=== PATIENT | female | born 1990 | race Caucasian/White ===

== ENCOUNTER 2017-08-04 18:53 | Emergency (ER) | payer OTHER, MEDICAID, SELFPAY ==
[2017-08-04 19:16] VITALS: BP 121/68; PULSE 91; RESP 18; TEMP 37.3; O2SAT 99; BMI 28.3
== END 2017-08-04 20:09 | disposition left against medical advice (07) ==
DX: R33.0 Drug induced retention of urine (principal)
CPT/HCPCS: 99281; 99282

== ENCOUNTER 2022-01-25 17:08 | Outpatient (CLI) | payer OTHER, MEDICAID, SELFPAY ==
--- NOTE | 2022-01-25 18:01 | PM.OBTRLD ---
Visit Information Visit Information Date of evaluation: 01/25/22 On-call OB Provider: Doug Aguero Comments/Additional reasons for admission: 31 yo , NIECY 03/02/2022 presents now at 34+6 weeks EGA for NST for unknown reasons in referral from [facility] on [facility]. According to the RN at [facility] the patient had a normal BPP today for uncertain reasons and the NST was to complete the full BPP. She is apparently receiving care on [facility] and was directed by her [facility] RN to have an NST performed at [facility] but she presents here at [facility] instead. No records are available but according to the patient she's had no issues with this . Vital Signs Vital Signs: BP 120/76 P=98 R=18 97.8F [facility] Medical History (Updated 01/25/22 @ 18:18 by Doug Aguero MD) Acne Chicken pox Chlamydia Surgical History (Updated 08/09/21 @ 08:45 by Shoshana Sandra RN) No significant past surgical history Family History (Updated 01/13/22 @ 17:51 by Pamela Horton) Father Diabetes mellitus Hypertension Hyperlipidemia Stroke Mother Mental health problem Sister Mental health problem Grandfather Liver failure Grandmother No problems noted. Social History marital status: unmarried,single number of children: 2 household members: children lives independently: Yes housing: apartment pets and animals: Yes (2 small dogs) occupational status: unemployed current occupational exposures/hazards: No special wallace needs: No seatbelt use: always helmet use: Yes water heater temp set < 120 deg: No (Will check and have maintenance superintendent adjust if needed) working smoke detector in home: Yes fire extinguisher in home: Yes carbon monox detector in home: Yes firearms in home: No do you feel safe at home: Yes Smoking Status: Current every day smoker (Less than usual since ) Tobacco: How many years used: 15 quit status: not considering quitting second hand exposure: Yes alcohol intake: former substance use type: does not use during the past year weight has: other (fluctuates ) well-balanced diet: about half the time daily servings fruits/ve-4 caffeine: Yes (aware of 200mg limit) Type(s) of exercise: walking additional social history: Pt had very poor experience w/ MFM in 2nd when baby was diagnosed with spina bifida and she reports she was frequently encouraged by her healthcare team to abort the . She has considered terminating this as it was unplanned and is currently being pressured by her family to keep it but has not made a decision yet. Exam Const General: cooperative Nutritional Appearance: average body habitus Orientation: alert and oriented x3 HENMT Head: normal to inspection, normocephalic and atraumatic Eyes General: appearance normal, both eyes and all related structures Resp Effort & Inspection: normal respiratory effort and able to speak in complete sentences GI Inspection: normal to inspection Uterus Location (Fundal Height): 34 Extrem Right lower extremity: normal to inspection Evaluation Evaluation Baseline heart rate: 135 Variability: Moderate (11-25) monitor accelerations: Present Monitor Decelerations: Absent Status: Category l Diagnosis, Plan/Disposition Final Diagnosis (1) : Status: Acute Problem details: 34+6 wks EGA Plan/Disposition Plan: Discharged with reassurance that her NST is reactive. She will return to the care of her providers at [facility]. OB Disposition: home
== END 2022-01-25 18:06 | disposition home or self-care (01) ==
LOC: OB 02-04 07:52
PROVIDERS: Referring Provider Obstetrics & Gynecology; Visit Provider Obstetrics & Gynecology
DX: Z34.83 Encounter for supervision of other normal pregnancy, third trimester (principal); Z3A.34 34 weeks gestation of pregnancy
CPT/HCPCS: 59025; G0378; G0379

== ENCOUNTER → 2022-12-31 13:37 | Outpatient (CLI) | payer OTHER, MEDICAID, SELFPAY ==
[2022-12-31 21:06] LABS: Urine N gonorrhoeae NOT DETECTED
[2022-12-31 21:26] LABS: Urine Chlamydia NOT DETECTED
[2023-01-02 08:13] LABS: RPR Screen Non Reactive (Non Reactive)
[2023-01-02 18:12] LABS: HIV 1 & 2 Ab/Ag 4th Gen Combo NEGATIVE (NEGATIVE); Hep C Virus Ab w/Reflex Quant NEGATIVE s/c (NEGATIVE)
== END ==
PROVIDERS: PCP Physician Assistant Medical; Visit Provider Physician Assistant Medical
DX: Z11.3 Encounter for screening for infections with a predominantly sexual mode of transmission (principal)
CPT/HCPCS: 86592; 86696; 86803; 87389; 87491; 87591